=== PATIENT | male | born 1955 | race Caucasian/White ===

== ENCOUNTER → 2022-06-27 | Outpatient (CLI) | payer OTHER ==
[2022-06-27 13:34] LABS: C REACTIVE PROTEIN QUANTITATIV 0.42 MG/DL (0.00-0.30); RHEUMATOID FACTOR QUANT < 10.0 IU/ML (<15.0); URIC ACID 5.4 MG/DL (3.5-7.2)
== END ==
LOC: M PLALAB 11:30
PROVIDERS: ATTEND Physician Assistant
DX: M17.11 Unilateral primary osteoarthritis, right knee (principal)

== ENCOUNTER → 2023-03-19 | Outpatient (CLI) | payer OTHER | LOC: M SOG 07:52 | PROVIDERS: ATTEND Orthopaedic Surgery | DX: M17.11 Unilateral primary osteoarthritis, right knee (principal) ==

== ENCOUNTER → 2024-09-17 | Outpatient (CLI) | payer MEDICARE ==
[~2024-09-17] MED LIST: FLUTISP; LISI5TAB11; METF500T13
[2024-09-17 13:10] LABS: HEMATOCRIT 54.7 % (42.0-52.0); HEMOGLOBIN 18.2 g/dl (13.5-17.5); MEAN CORPUSCULAR HEMOGLOBIN 30.1 pg (27.0-33.0); MEAN CORPUSCULAR HGB CONC 33.3 g/dl (32.0-36.5); MEAN CORPUSCULAR VOLUME 90.4 fl (80.0-96.0); PLATELET COUNT, AUTOMATED 208 10^3/uL (150-450); RED BLOOD COUNT 6.05 10^6/uL (4.30-6.10); WHITE BLOOD COUNT 7.6 10^3/uL (4.0-10.0)
[2024-09-17 13:25] LABS: ALBUMIN 3.6 G/DL (3.2-5.2); ALKALINE PHOSPHATASE 94 U/L (46-116); ALT/SGPT 11 U/L (7.0-40); AST/SGOT 9 U/L (<34); BLOOD UREA NITROGEN 13 MG/DL (9-23); CALCIUM LEVEL 9.5 MG/DL (8.3-10.6); CARBON DIOXIDE LEVEL 32 MMOL/L (20-31); CHLORIDE LEVEL 105 MMOL/L (98-107); CHOLESTEROL LEVEL 162 MG/DL (<200); CHOLESTEROL RISK RATIO 4.25 (<5); CREATININE FOR GFR 0.68 MG/DL (0.70-1.30); GLOMERULAR FILTRATION RATE > 60.0 (>42); GLUCOSE, FASTING 103 MG/DL (74-106); HDL CHOLESTEROL 38.1 MG/DL (>40); LDL CHOLESTEROL 108.9 MG/DL (<100); NON-HDL-C 123.9 MG/DL; POTASSIUM SERUM 4.4 MMOL/L (3.5-5.1); SODIUM LEVEL 140 MMOL/L (136-145); TOTAL PROTEIN 7.6 G/DL (5.7-8.2); TRIGLYCERIDES LEVEL 75 MG/DL (<150)
== END ==
LOC: M PLAIMG 11:21
PROVIDERS: ATTEND Internal Medicine Cardiovascular Disease
DX: R06.02 Shortness of breath (principal); J90 Pleural effusion, not elsewhere classified; S22.41XS Multiple fractures of ribs, right side, sequela; Y93.9 Activity, unspecified; Y92.9 Unspecified place or not applicable; I50.32 Chronic diastolic (congestive) heart failure; I25.10 Atherosclerotic heart disease of native coronary artery without angina pectoris; I11.0 Hypertensive heart disease with heart failure; J81.1 Chronic pulmonary edema

== ENCOUNTER → 2024-10-05 | Outpatient (CLI) | payer MEDICARE | LOC: M EKG 07:59 | PROVIDERS: ATTEND Internal Medicine Cardiovascular Disease | DX: I45.2 Bifascicular block (principal); I49.5 Sick sinus syndrome ==

== ENCOUNTER → 2024-11-03 | Outpatient (CLI) | payer MEDICARE | LOC: M CARPUL 08:50 | PROVIDERS: ATTEND Internal Medicine Cardiovascular Disease | DX: I50.32 Chronic diastolic (congestive) heart failure (principal); R94.31 Abnormal electrocardiogram [ECG] [EKG]; I77.810 Thoracic aortic ectasia; I27.20 Pulmonary hypertension, unspecified; I36.1 Nonrheumatic tricuspid (valve) insufficiency ==

== ENCOUNTER → 2024-11-08 | Outpatient (CLI) | payer MEDICARE | LOC: M SOG 07:53 | PROVIDERS: ATTEND Orthopaedic Surgery | DX: M25.561 Pain in right knee (principal); M85.861 Other specified disorders of bone density and structure, right lower leg ==

== ENCOUNTER → 2025-06-08 | Outpatient (CLI) | payer MEDICARE, MEDICAID ==
[2025-06-08 17:01] LABS: BASO # 0.1 10^3/uL (0.0-0.2); BASO % 1.1 % (0.0-1.0); EOS # 0.2 10^3/uL (0.0-0.5); EOS % 1.9 % (0.0-3.0); LYMPH # 2.9 10^3/uL (1.5-5.0); LYMPH % 34.8 % (24.0-44.0); MONO # 0.6 10^3/uL (0.0-0.8); MONO % 7.2 % (2.0-8.0); NEUTROPHILS # 4.6 10^3/uL (1.5-8.5); NEUTROPHILS % 54.5 % (36.0-66.0); PLATELET COUNT, AUTOMATED 195 10^3/uL (150-450)
[2025-06-08 17:11] LABS: ERYTHROCYTE SEDIMENTATION RATE 13 mm/hr (0-20)
[2025-06-08 17:19] LABS: INR 1.0
[2025-06-08 17:22] LABS: ALT/SGPT 10 U/L (7.0-40); AST/SGOT 19 U/L (<34); C REACTIVE PROTEIN QUANTITATIV 0.52 MG/DL (<1.0); CALCIUM LEVEL 9.0 MG/DL (8.3-10.6); CARBON DIOXIDE LEVEL 27 MMOL/L (20-31); CHLORIDE LEVEL 109 MMOL/L (98-107); CREATININE FOR GFR 0.62 MG/DL (0.70-1.30); GLOMERULAR FILTRATION RATE > 90.0 (>42); POTASSIUM SERUM 4.1 MMOL/L (3.5-5.1); SODIUM LEVEL 146 MMOL/L (136-145)
[2025-06-08 17:25] LABS: ESTIMATED AVERAGE GLUCOSE 111.0 MG/DL (60-110); TOTAL 25(OH) VITAMIN D 54.2 NG/ML (20.0-100.0)
== END ==
LOC: M PLALAB 14:46
PROVIDERS: ATTEND Orthopaedic Surgery
DX: M17.11 Unilateral primary osteoarthritis, right knee (principal); Z79.01 Long term (current) use of anticoagulants

== ENCOUNTER → 2025-09-06 | Outpatient (CLI) | payer MEDICARE, MEDICAID ==
[~2025-09-06] MED LIST changes: +ACET32TAB PO; +ASPI81TAEC PO; +CEFD300CAP PO; +CELE100C PO; +IBUP-354 PO; -LISI5TAB11; +LISI5TAB11 PO; -METF500T13; +METF500T13 PO; +OXYC1TAB23 PO
== END ==
LOC: M RAD 07:18
PROVIDERS: ATTEND Orthopaedic Surgery
DX: M17.11 Unilateral primary osteoarthritis, right knee (principal)

== ENCOUNTER 2025-09-12 09:14 | Observation (INO) | payer MEDICARE, MEDICAID ==
[2025-09-12] VITALS (7 sets, daily range): BP systolic 114–130; BP diastolic 68–73; TEMP 97.3–98.1; O2SAT 92–96
[~2025-09-12] VITALS: Ht 180.3 cm; Wt 125.5 kg
[~2025-09-12 09:14] MED LIST changes: -ACET32TAB PO; -ASPI81TAEC PO; -CEFD300CAP PO; -CELE100C PO; -OXYC1TAB23 PO
[2025-09-12] MEDS ORDERED: dexAMETHasone 4 MG/ML 1 ML VIAL As Ordered ONE (10:32)
[2025-09-12] MEDS ORDERED: ONDANSETRON 4MG 2ML VIAL As Ordered ONE (10:32)
[2025-09-12] MEDS ORDERED: KETOROLAC 30 MG/ML 1 ML VIAL As Ordered ONE (10:32)
[2025-09-12] MEDS ORDERED: LIDOCAINE 2% 100 MG/5 ML SDV (FOR ANES.) As Ordered ONE (10:32)
[2025-09-12] MEDS ORDERED: ceFAZolin SOD 2 GM IV ONCE IV ONE (10:50)
[2025-09-12] MEDS: ceFAZolin SOD 3 GM in DEXTROSE 5% (D5W) MINI-BAG PLU 1... IV ONE (12:00)
[2025-09-12] MEDS ORDERED: KETAMINE HCL 200 MG/20 ML VIAL As Ordered ONE (12:03)
[2025-09-12] MEDS: TRANEXAMIC ACID 100 MG/ML 10ML VIAL As Ordered ONE (12:15)
[2025-09-12] MEDS ORDERED: MIDAZOLAM INJ 2 MG/2 ML VIAL As Ordered ONE (12:34)
[2025-09-12] MEDS ORDERED: PHENYLEPHRINE 10MG/ML 1ML VIAL As Ordered ONE (12:40)
[2025-09-12] MEDS: ROPIVA 100MG/KETOR 15MG/EPINEPHRINE 0.3MG IN NS 50ML SYRINGE PA ONE (14:03)
[2025-09-12] MEDS: TRANEXAMIC ACID 100 MG/ML 10ML VIAL IV ONE (14:04)
[2025-09-12] MEDS ORDERED: ONDANSETRON 4MG 2ML VIAL IV PRN ×2 (14:30→14:50)
[2025-09-12] MEDS ORDERED: MORPHINE 4 MG/ML 1 ML VIAL IV PRN (14:30)
[2025-09-12] MEDS ORDERED: SENNA 8.6 MG TAB PO PRN (14:50)
[2025-09-12] MEDS ORDERED: DEXTROSE 50% 50 ML SYRINGE IV PRN (14:55)
[2025-09-12] MEDS ORDERED: GLUCAGON INJ 1 MG VIAL SC PRN (14:55)
[2025-09-12] MEDS ORDERED: GLUCOSE 4 GM CHEW PO PRN (14:55)
[2025-09-12] MEDS: INSULIN LISPRO (NovoLOG) PER UNIT SC SCH ×2 (17:30→20:07)
[2025-09-12] MEDS: ACETAMINOPHEN 325 MG TAB PO SCH (17:41)
[2025-09-12] MEDS: LR 1,000 ML IV SCH (17:43)
[2025-09-12] MEDS: ceFAZolin SODIUM 2 GM in DEXTROSE 5% (D5W) ADV/MINI-BAG 50 ML IV SCH (19:59)
[2025-09-12] MEDS: ASPIRIN 81 MG ENTERIC TABLET PO SCH (20:03)
[2025-09-12] MEDS: DOCUSATE SODIUM 100 MG CAPSULE PO SCH (20:03)
[2025-09-13 00:45] VITALS: BP 128/72; TEMP 98.6; O2SAT 96
[2025-09-13 04:45] VITALS: BP 130/72; TEMP 98.2; O2SAT 94
[2025-09-13 06:44] LABS: PLATELET COUNT, AUTOMATED 186 10^3/uL (150-450)
[2025-09-13 07:19] LABS: ALT/SGPT < 9 U/L (7.0-40); AST/SGOT 12 U/L (<34); CALCIUM LEVEL 8.1 MG/DL (8.3-10.6); CARBON DIOXIDE LEVEL 29 MMOL/L (20-31); CHLORIDE LEVEL 103 MMOL/L (98-107); CREATININE FOR GFR 0.65 MG/DL (0.70-1.30); GLOMERULAR FILTRATION RATE > 90.0 (>42); POTASSIUM SERUM 4.1 MMOL/L (3.5-5.1); SODIUM LEVEL 140 MMOL/L (136-145)
[2025-09-13 08:00] VITALS: BP 118/61; TEMP 98.1
[2025-09-13] MEDS ORDERED: HOME MED LIST COMPLETE! XX SCH (08:15)
[2025-09-13] MEDS: ASCORBIC ACID 500 MG TAB PO SCH (08:53)
[2025-09-13] MEDS: CEFDINIR 300 MG CAP PO SCH (08:53)
[2025-09-13] MEDS: FERROUS SULFATE 325 MG TAB PO SCH (08:53)
[2025-09-13] MEDS ORDERED: OXYC1TAB23 PO (09:40)
[2025-09-13] MEDS ORDERED: CEFD300CAP PO (09:40)
[2025-09-13] MEDS ORDERED: ACET32TAB PO (09:40)
[2025-09-13] MEDS ORDERED: CELE100C PO (09:40)
[2025-09-13] MEDS ORDERED: ASPI81TAEC PO (09:40)
== END 2025-09-13 12:21 | disposition home or self-care (01) ==
LOC: M SDC 09:14 → M RR INP 11:49 → M MSPAV 15:47
PROVIDERS: ADMIT Orthopaedic Surgery; ATTEND Orthopaedic Surgery
DX: M17.11 Unilateral primary osteoarthritis, right knee (principal); I25.10 Atherosclerotic heart disease of native coronary artery without angina pectoris; I50.9 Heart failure, unspecified; I71.40 Abdominal aortic aneurysm, without rupture, unspecified; Z88.0 Allergy status to penicillin
CPT/HCPCS: 27447; 36415; 73560; 80053; 85027; 88300; 96365; 96366; 97110; 97116; 97161; 97165; 97530; C1776; G0378; J0665; J0688; J1100; J1815; J1885; J2250; J2371; J2405; S2900

== ENCOUNTER → 2025-09-23 | Outpatient (CLI) | payer MEDICARE, MEDICAID ==
[~2025-09-23] MED LIST changes: +ACET32TAB PO; +ASPI81TAEC PO; +CEFD300CAP PO; +CELE100C PO; +OXYC1TAB23 PO
== END ==
LOC: M SOG 07:33
PROVIDERS: ATTEND Orthopaedic Surgery
DX: Z96.651 Presence of right artificial knee joint (principal); Z47.1 Aftercare following joint replacement surgery; M25.461 Effusion, right knee; M79.89 Other specified soft tissue disorders

== ENCOUNTER → 2025-11-22 | Outpatient (CLI) | payer MEDICARE, MEDICAID | LOC: M SOG 07:35 | PROVIDERS: ATTEND Orthopaedic Surgery | DX: Z47.1 Aftercare following joint replacement surgery (principal); Z96.651 Presence of right artificial knee joint ==